=== PATIENT | female | born 2000 | race Caucasian/White ===

== ENCOUNTER → 2019-01-09 | Outpatient (REF) | payer OTHER | LOC: M LAB REF 16:32 | PROVIDERS: ATTEND Physician Assistant | DX: A09 Infectious gastroenteritis and colitis, unspecified (principal) ==

== ENCOUNTER → 2019-07-13 | Outpatient (REF) | payer OTHER | LOC: M LAB REF 10:03 | PROVIDERS: ATTEND Physician Assistant | DX: R30.0 Dysuria (principal) ==

== ENCOUNTER 2020-01-15 11:25 | Outpatient (CLI) | payer OTHER ==
[~2020-01-15] VITALS: Ht 154.9 cm; Wt 85.8 kg
[2020-01-15 11:58] VITALS: BP 126/66
[2020-01-15] MEDS ORDERED: LR 1,000 ML IV SCH (13:00)
[2020-01-15] MEDS ORDERED: LR 1,000 ML IV ONE (13:00)
--- NOTE | 2020-01-15 13:10 | IPNPDOC ---
Text Note Date of Service The patient was seen on 01/15/20. NOTE patient is a 19 yo G1 @ 24+5wks gestation with mono/di twins gestation presents to L&D for newly found shortened cervix at 1.1cm on growth US today. patient denies ctx/lof/vb. vitals: normal nad abd: gravid, soft, nt fhtA: 145/mod amairani/no accel/no decel fhtB: 150/mod amairani/no accel/no decel toco: ctx q1-2mins (patient not feeling contractions) speculum exam: cervix visually closed, vaginal with white discharge, no lesion wet prep: pending a/p patient is a 19 yo G1 mono/di twins @ 24+5wks with shortened cervix. reviewed of prior US on Fe showed cervix length at 4.3cm. Today's cervix length at 1.1cm concerning for early labor since toco is showing contractions. Discussed with Dr. Lee at [facility] and he agrees to accept patient for higher level of care for potential neonates. plan discussed with patient and spouse and they are in agreement with plan for transfer to [facility]. DO Demetrice VS,Ulices, I+O VS, Ulices, I+O Vital Signs Date Time Temp Pulse Resp B/P (MAP) Pulse Ox O2 Delivery O2 Flow Rate FiO2 01/15/20 11:58 99.1 107 18 126/66 (86) YAA MORALES DO Jan 15, 2020 13:10
[2020-01-15 13:15] VITALS: BP 122/75
[2020-01-15] MEDS ORDERED: ASPI81CH33 PO (13:59)
[2020-01-15] MEDS ORDERED: PREN29TA4 PO (13:59)
[2020-01-15] MEDS ORDERED: FOLI1TAB11 PO (13:59)
[2020-01-15] MEDS ORDERED: FLUCONAZOLE 50MG TABLET PO ONE (15:00)
== END 2020-01-15 13:35 | disposition other institution (70) ==
LOC: M LDO 11:25
PROVIDERS: ATTEND Advanced Practice Midwife
DX: O26.872 Cervical shortening, second trimester (principal); Z3A.24 24 weeks gestation of pregnancy; O30.032 Twin pregnancy, monochorionic/diamniotic, second trimester; O26.892 Other specified pregnancy related conditions, second trimester; N89.8 Other specified noninflammatory disorders of vagina; O60.02 Preterm labor without delivery, second trimester
CPT/HCPCS: 87210; 96360; G0378; G0463

== ENCOUNTER → 2020-02-18 | Outpatient (CLI) | payer OTHER ==
[~2020-02-18] MED LIST: ASPI81CH33 PO; FOLI1TAB11 PO; PREN29TA4 PO
--- NOTE | 2020-02-19 16:33 | REP ---
Clinical: Twin gestation. Growth evaluation Findings: Examination demonstrates advanced diamniotic monochorionic twin gestation. Cervix is not measurable on transvaginal examination. Concordant growth is noted. Gestational age by LMP at 29 weeks 4 days with estimated date of delivery 05/01/2020 . TWIN A: Twin A identified in cephalic presentation along the maternal right side. Placenta is noted posterior/left lateral and grade I without evidence for placenta previa or abruption. motion is appreciated. Amniotic fluid volume is normal and the deepest pocket measures 2.3 cm. FHR equals 152 beats per minute. Gestational age by current measurements: 30 weeks 3 days . Estimated weight 1557 grams ( 59th percentile). Biophysical profile score: 8/8 Umbilical cord SD ratio: 2.72 ------- TWIN B: Twin B identified in cephalic presentation along the maternal left side. Placenta is noted posterior/left lateral and grade I without evidence for placenta previa or abruption. motion is appreciated. Amniotic fluid volume is normal and the deepest pocket measures 3.2 cm. FHR equals 167 beats per minute. Gestational age by current measurements: 30 weeks 3 days . Estimated weight 1581 grams ( 62nd percentile). Biophysical profile score: 8/8 Umbilical cord SD ratio: 2.89 Impression: 1. Advanced diamniotic monochorionic twin gestation demonstrating appropriate concordant growth. No gross abnormalities are identified. 2. Cervix is thinned and not measurable by transvaginal examination. 3. Biophysical profile score 8/8 both twins. Electronically Signed by Calvin Thurston MD 02/19/2020 04:25 P
== END ==
LOC: M RAD 10:03
PROVIDERS: ATTEND Obstetrics & Gynecology
DX: O30.033 Twin pregnancy, monochorionic/diamniotic, third trimester (principal); Z3A.28 28 weeks gestation of pregnancy

== ENCOUNTER 2020-02-29 03:51 | Outpatient (CLI) | payer OTHER ==
[~2020-02-29] VITALS: Ht 154.9 cm; Wt 93.0 kg
[2020-02-29 04:24] VITALS: BP 126/78
[2020-02-29] MEDS ORDERED: TERBUTALINE SULFATE 1 MG/ML VIAL (J3105) SC ONE ×2 (05:15→07:45)
[2020-02-29] MEDS ORDERED: MOM 30ML SUSPENSION UDC PO PRN (05:15)
[2020-02-29] MEDS ORDERED: ONDANSETRON 4 MG ORAL DISINTEGRATING TAB PO PRN (05:15)
[2020-02-29] MEDS ORDERED: LR 1,000 ML IV ONE ×3 (05:15→06:15)
[2020-02-29] MEDS ORDERED: CALCIUM CARBONATE 500 MG CHEW U/D PO PRN (05:15)
[2020-02-29] MEDS ORDERED: diphenhydrAMINE 25MG CAP PO PRN (05:15)
[2020-02-29] MEDS: BETAMETHASONE SOLUSPAN 6MG/ML 5ML VIAL (J0702 PER 3MG) IM SCH (05:22)
--- NOTE | 2020-02-29 05:33 | HPEPDOC ---
Obstetrical History & Physical General Date of Admission History of Present Illness Patient is a 19yo at 31.5wks by redating 5wk US. Contractions since 10pm. Was transferred to [facility] 01/15/2020 for PTL and short cervix. Received beta. GBS positive. No LOF. Good movement. Chief Complaint: Contractions, pre-term Information Provided By: Patient Care Care: Good Care Dating Final EDC: May 01, 2020 Final EDC by: 2nd trimester (US) Antepartum Course Height (inches): 61 Pre- weight (lbs.): 155 Admission Weight (lbs.): 195 Change in Weight (lbs.): 40 Past Medical History Past Obstetrical History : Past Obstetrical History: [facility] History: No pertinent history Past Medical History Medical History none Surgical History: Denies/None Family History Significant Family History: No pertinent family hx Social History Marital Status: Family situation: Spouse/partner home Psychosocial History: No pertinent psych hx * Smoker: non-smoker Alcohol: Denies Drugs: denies Abuse Violence Screening Have you been hit/kicked/slapp: No Have you been sexually assault: No Imunizations Tdap status: current Influenza Status: current Allergies Coded Allergies: ampicillin (Verified Allergy, Intermediate, rash & hives, 02/29/20) codeine (Verified Allergy, Intermediate, rash & hives, 02/29/20) Medications Scheduled Aspirin (Aspirin) 81 Mg Tab.chew, 81 MG PO DAILY for pain Folic Acid (Folic Acid) 1 Mg Tablet, 1 TAB PO DAILY Prenat 115/Iron Fum/Folic/Dss ( 19 Tablet) 1 Each Tablet, 1 TAB PO DAILY Physical Examination Physical Examination GENERAL: Alert and oriented times three. BREAST: . ABDOMEN: Gravid and non-tender to touch. SVE: deferred EXTREMITIES: No edema. Vital Signs/I&O Vital Signs Date Time Temp Pulse Resp B/P (MAP) Pulse Ox O2 Delivery O2 Flow Rate FiO2 02/29/20 04:24 98.4 99 126/78 (94) Laboratory Data Urine Culture: Contaminated Pertinent Laboratoy Data Blood Type: A+ RBC Antibody Screen: Negative HIV: Negative Hepatitis B: Negative Rapid Plasma Reagin: Nonreactive Rubella: Immune Varicella: Immune Chlamydia/Gonorrhea: Negative Group B Streptococcus: Positive Cystic Fibrosis: Negative Glucose Tolerance Test: 119 Assessment Heart Rate (FHR): 140 Variability: Moderate Accelerations: Positive Decelerations: None Tocometer Contractions: Yes Frequency: every 2-5 min. Multi-drug resistant Organism: No history of MDRO Assessment/Plan Assessment Patient is a 19yo at 31.5wks by redating 5wk US. Patient presenting with labor with twins. Plan Place on 23hr observation. Diet: Regular. Group B Streptococcus (GBS) Positive and will require antibiotics if labor continues. Labs and intravenous (IV) per unit protocol. Lactated Ringers (LR): Bolus 1000 mL, then at 125 mL/hr. US for cervical length, EFW, CHAVO, and positioning. Terbutaline and reevaluate for possible Magnesium sulfate vs nifedipine. Start beta series. Bushra Ordaz MD Feb 29, 2020 05:33
[2020-02-29 07:06] VITALS: BP 127/64
--- NOTE | 2020-02-29 07:11 | REPVR ---
PROCEDURE INFORMATION: Exam: US , Limited Exam date and time: 02/29/2020 6:40 AM Age: 19 years old Clinical indication: Lmp or gestational age (in weeks): 31; Other: Contractions; ; Additional info: Cervical length, tania, efw, position TECHNIQUE: Imaging protocol: Real-time ultrasound of the maternal uterus with image documentation. Exam focused on the clinical indication. COMPARISON: US OBS SINGEL GEST 02/18/2020 10:11 AM FINDINGS: GESTATION: There is a twin with 2 live fetuses. Fetus A Gestation: The stomach appears unremarkable. Assessment of the anatomy was somewhat limited due to patient positioning and crowding. The lateral ventricles normal in size. The posterior fossa was not well visualized. The midline structures of the brain were not well visualized. The bladder appears unremarkable. Heart rate: A heartbeat was detected with a rate of 154 bpm. Presentation: The lie is vertex, to the maternal right. Placenta: There is a single placenta, right lateral in position. There is no retroplacental hemorrhage. Amniotic fluid: The deepest pocket of the amniotic fluid is 6.2 cm. BIOMETRY: Estimated gestational age: The average ultrasound age is 32 weeks 2 days. Estimated weight: The estimated weight is 1781 g. Biparietal diameter: The biparietal diameter is 8.26 cm, corresponding to a 33 week 2 day gestation. Head circumference: The head circumference is 29.97 cm, corresponding to a 33 week 2 day gestation. Abdominal circumference: The abdominal circumference measures 27.38 cm, corresponding to a 31 week 4 day gestation. Femur length: The femur length is 5.86 cm, corresponding to a 30 week 5 day gestation. Fetus B Gestation: The midline structures of the brain, the lateral ventricles, the spine, the kidneys, the stomach, the bladder, the diaphragm were identified and appear normal. Heart rate: A heartbeat was detected with a rate of 164 bpm. Presentation: The lie is vertex, to the maternal left. Placenta: There is a single placenta, right lateral in position. There is no retroplacental hemorrhage. Amniotic fluid: The deepest pocket of the amniotic fluid is 5.0 cm. BIOMETRY: Estimated gestational age: The average ultrasound age is 31 weeks 3 days. Estimated weight: The estimated weight is 1705 g. Biparietal diameter: The biparietal diameter is 7.71 cm, corresponding to a 31 week 0 day gestation. Head circumference: The head circumference is 29.91 cm, corresponding to a 33 week 1 day gestation. Abdominal circumference: The abdominal circumference measures 26.5 cm cm, corresponding to a 30 week 5 day gestation. Femur length: The femur length is 6.02 cm, corresponding to a 31 week 3 day gestation. MATERNAL: Cervix: The internal cervical os appears to be closed. The cervix could not be fully visualized and a cervical length could not be accurately measured. IMPRESSION: 1. Live twin . 2. Estimated age by average sonographic measurements for fetus A is 31 weeks 6 days and for fetus B is 31 weeks 3 days, demonstrating appropriate interval growth compared to the prior exam. Electronically signed by: Sofía Burnham On 02/29/2020 07:11:05 AM
--- NOTE | 2020-02-29 07:37 | IPNPDOC ---
Text Note Date of Service The patient was seen on 02/29/20. NOTE Received "wet read" on US of CL could not be determined but inner os closed. position vtx/vtx. EFW 1708 and 1781. Adequate CHAVO. Current both Category 1 strip. Ctx q7min. She is feeling a lot less of the contractions and discomfort. Patient received 1dose of terb and IVF 1000mL bolus. I will give another dose of Terb as it has been affective, but patient at very high risk. Continue to monitor. VS,Fishbone, I+O VS, Fishbone, I+O Vital Signs Date Time Temp Pulse Resp B/P (MAP) Pulse Ox O2 Delivery O2 Flow Rate FiO2 02/29/20 04:24 98.4 99 126/78 (94) Bushra Ordaz MD Feb 29, 2020 07:37
[2020-02-29 11:46] VITALS: BP 118/70
[2020-02-29] MEDS ORDERED: ACETAMINOPHEN 500 MG TAB PO ONE (12:15)
[2020-02-29 18:30] VITALS: BP 114/62
[2020-02-29 20:54] VITALS: BP 114/56
[2020-03-01 00:37] VITALS: BP 104/58
[2020-03-01] MEDS: BETAMETHASONE SOLUSPAN 6MG/ML 5ML VIAL (J0702 PER 3MG) IM SCH (05:15)
[2020-03-01 05:21] VITALS: BP 126/58
[2020-03-01] MEDS ORDERED: CALC200T15 PO (10:10)
--- NOTE | 2020-03-01 16:03 | DSES ---
DATE OF ADMISSION: 02/29/2020 DATE OF DISCHARGE: 03/01/2020 This lady is a 19-year-old 1, para 0 at 31 weeks and five days, came in on 02/29/2020 with contractions since 10:00 p.m. on 02/29/2020. She was originally transferred to [facility] on 01/15/2020 because of labor with a short cervix. She received beta to make her complete and she was group B Streptococcus (GBS) positive. She was then discharged from [facility] to followup with [facility] ([facility]). Risk factors is she has mono/di twins. She has a shortened cervix. She is on ASA. She has a very friable cervix which causes spotting and she originally started with a shortened cervix of 1.1 cm. LABORATORY DATA: Her blood work is A+, HIV negative, hepatitis negative, RPR negative, rubella immune. Varicella immune. Pap was deferred to . Urine was negative. Gonorrhea and chlamydia are negative. One-hour glucose was 119. On admission, she was given IV fluids in a bolus. She was delay of group B Streptococcus (GBS) prophylaxis unless in actual labor. She was given terbutaline in order to stop contractions and she was given another series of betamethasone because the last one was six weeks ago. Over the course of the next 24 hours, she settled down. There was no vaginal bleeding. She had an ultrasound which indicated they were vertex, vertex, estimated weight 1708 and 1781 grams. Amniotic fluid index (CHAVO) was adequate, category 1 strips, and she just had contractions intermittently, sporadically, not painful and not feeling them. This morning, she was given her second dose of beta. We reviewed her ultrasound which focused on the cervix which showed that the external os was closed, but they were not able to visualize the total cervix length, and there was an estimation of funneling. Prior to discharge, we reevaluated her cervix digitally. There was basically no change in the cervix. She was counseled regarding kick chart, bleeding, contractions. She has an appointment in less than 24 hours at [facility] ([facility]). On discharge, her blood pressure is 126/58, respirations are 18, pulse is 98 and temperature is 98.0. She again has a category 1 strip times two. She is otherwise normocephalic, atraumatic. Neck: Full range of motion. Pupils equal and reactive to light. Distal pulses are symmetric. No evidence of deep vein thrombosis (DVT), pulmonary embolism (PE) or superficial phlebitis. Chest is clear bilaterally to bases. No wheezes or rhonchi. No costovertebral angle (CVA) tenderness. Abdomen is soft. Four quadrant bowel sounds are noted. hearts are present on the monitor. She has no loss of fluid or bleeding. She has no nausea, vomiting, diarrhea or constipation. No urgency. No frequency. No rashes, lesions, pruritus or arthralgia. She is neurologically complete. The patient expressed anxiety to go home as she has been here for almost 48 hours with no advancement in dilatation or contractions. The patient expressed understanding. All questions were answered, a 30-minute discussion, and the patient was discharged to followup in the office in less than 24 hours.
== END 2020-03-01 09:56 | disposition home or self-care (01) ==
LOC: M LDO 03:51 → EEVIPCON 03:51 → M LDO 03-01 09:56
PROVIDERS: ATTEND Obstetrics & Gynecology
DX: O60.03 Preterm labor without delivery, third trimester (principal); O30.033 Twin pregnancy, monochorionic/diamniotic, third trimester; O26.873 Cervical shortening, third trimester; Z88.1 Allergy status to other antibiotic agents; Z88.5 Allergy status to narcotic agent; Z3A.31 31 weeks gestation of pregnancy
CPT/HCPCS: 59025; 76816; 76817; 76820; 96372; G0378; G0463; J0702; J3105

== ENCOUNTER 2020-03-04 03:57 | Inpatient (IN) | payer OTHER ==
[2020-03-04] VITALS (40 sets, daily range): BP systolic 94–136; BP diastolic 52–92
[~2020-03-04] VITALS: Ht 154.9 cm; Wt 94.9 kg
[~2020-03-04 03:57] MED LIST changes: +CALC200T15 PO
[2020-03-04] MEDS ORDERED: TERBUTALINE SULFATE 1 MG/ML VIAL (J3105) SC SCH (04:45)
[2020-03-04] MEDS ORDERED: LR 1,000 ML IV ONE (04:45)
[2020-03-04] MEDS ORDERED: INDOMETHACIN 50 MG SUPPOSITORY (INDOCIN) PR ONE (04:45)
[2020-03-04 05:19] LABS: HEMATOCRIT 33.2 % (36.0-47.0); MEAN CORPUSCULAR HEMOGLOBIN 29.9 pg (27.0-33.0); MEAN CORPUSCULAR HGB CONC 33.1 g/dl (32.0-36.5); MEAN CORPUSCULAR VOLUME 90.2 fl (80.0-96.0); PLATELET COUNT, AUTOMATED 182 10^3/uL (150-450); RED BLOOD COUNT 3.68 10^6/uL (4.00-5.40)
[2020-03-04] MEDS ORDERED: LACTATED RINGER'S 1000 ML IV ONE (05:45)
[2020-03-04] MEDS: LR 1,000 ML IV SCH ×2 (06:29→18:31)
[2020-03-04] MEDS ORDERED: FENTANYL 2MCG/ML ROPIVACAINE 0.2% IN 0.9% NACL 100ML IVBAG As Ordered ONE ×2 (07:10→17:36)
[2020-03-04] MEDS: VANCOMYCIN HCL 1,000 MG, VIAL MATE ADAPTER 1 EACH in D5W 250 ML IV SCH ×2 (08:42→20:30)
[2020-03-04] MEDS ORDERED: * PENDING VANCOMYCIN ENTRY XX SCH (09:00)
[2020-03-04] MEDS ORDERED: MAG Sulf (L&D) 4 GM/100 ML 4 GM in IV 1 EA IV ONE (09:15)
[2020-03-04] MEDS ORDERED: CALCIUM GLUCONATE 1,000 MG in D5W MINI-BAG PLUS 100 ML IV PRN (09:15)
[2020-03-04] MEDS: MAG Sulf (OBGYN) 20GM/500ML 20,000 MG in IV 1 EA IV SCH ×2 (10:05→20:09)
--- NOTE | 2020-03-04 11:30 | IPNPDOC ---
Text Note Date of Service The patient was seen on 03/04/20. NOTE Intrapartum Note, Acceptance of Care Naya is a 19yo with mono-di twin gestation at 31w5d by 6wk u/s who was admitted around 0400 this morning for pre-term labor with cervix 6cm dilated and actively alexus. She was given indomethacin and terbutaline by the admitting physician. Since that time her ctx have spaced greatly. Patient received epidural and is comfortable. Membranes are intact. Notably, patient was evaluated this past weekend on 02/28 for PTL and received a second course of betamethasone. Ultrasound showed internal cervical os was closed, though cervical length could not be performed due to visualization- she was discharged home when she had no cervical change. PMhx/PNC significant for: starting BMI 29, shortened cervix in 2nd trimester that she was taking vaginal progesterone for. Admitted to [facility] at 24wk 01/14- 01/17 for shortened cervix where she received course of betamethasone and found to be GBS pos. Allergy to amoxicillin. 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 Fetus A Gestation: The stomach appears unremarkable. Assessment of the anatomy was somewhat limited due to patient positioning and crowding. The lateral ventricles normal in size. The posterior fossa was not well visualized. The midline structures of the brain were not well visualized. The bladder appears unremarkable. Heart rate: A heartbeat was detected with a rate of 154 bpm. Presentation: The lie is vertex, to the maternal right. Placenta: There is a single placenta, right lateral in position. There is no retroplacental hemorrhage. Amniotic fluid: The deepest pocket of the amniotic fluid is 6.2 cm. BIOMETRY: Estimated gestational age: The average ultrasound age is 32 weeks 2 days. Estimated weight: The estimated weight is 1781 g. Biparietal diameter: The biparietal diameter is 8.26 cm, corresponding to a 33 week 2 day gestation. Head circumference: The head circumference is 29.97 cm, corresponding to a 33 week 2 day gestation. Abdominal circumference: The abdominal circumference measures 27.38 cm, corresponding to a 31 week 4 day gestation. Femur length: The femur length is 5.86 cm, corresponding to a 30 week 5 day gestation. Fetus B Gestation: The midline structures of the brain, the lateral ventricles, the spine, the kidneys, the stomach, the bladder, the diaphragm were identified and appear normal. Heart rate: A heartbeat was detected with a rate of 164 bpm. Presentation: The lie is vertex, to the maternal left. Placenta: There is a single placenta, right lateral in position. There is no retroplacental hemorrhage. Amniotic fluid: The deepest pocket of the amniotic fluid is 5.0 cm. BIOMETRY: Estimated gestational age: The average ultrasound age is 31 weeks 3 days. Estimated weight: The estimated weight is 1705 g. Biparietal diameter: The biparietal diameter is 7.71 cm, corresponding to a 31 week 0 day gestation. Head circumference: The head circumference is 29.91 cm, corresponding to a 33 week 1 day gestation. Abdominal circumference: The abdominal circumference measures 26.5 cm cm, corresponding to a 30 week 5 day gestation. Femur length: The femur length is 6.02 cm, corresponding to a 31 week 3 day gestation. MATERNAL: Cervix: The internal cervical os appears to be closed. The cervix could not be fully visualized and a cervical length could not be accurately measured. IMPRESSION: 1. Live twin . 2. Estimated age by average sonographic measurements for fetus A is 31 weeks 6 days and for fetus B is 31 weeks 3 days, demonstrating appropriate interval growth compared to the prior exam. Assessment: Naya is a 19yo with mono-di twin gestation at 31w5d by 6wk u/s in pre-term labor. She was given indomethacin/terbutaline by admitting physician which stopped/spaced her ctx and she has had no further cervical change from this morning, still 6/100/-1 over 5 hours. Reassuring status x2. Vitals wnl. Plan: -Continue to monitor closely -IV MgSO4 4/2g initiated for neuro protection. Neuro checks. Monitoring of UOP. -1g vancomycin q12hr initiated for GBS positive status (seen in PNC documentatio n and GBS urine result was faxed which confirms, she has allergy to amoxicillin- hives/rash- and the urine cx showed clinda/erythro resistant -NO further betamethasone since patient received a course in January and again this past weekend -Dr. Porras was consulted for NICU perspective and has spoken with patient regarding expectations -Given that fetuses are cephalic/cephalic, plan is for vaginal delivery. However, delivery will occur in the OR and set up done to perform if there is any indication -NPO -Safe to proceed Dr. Dolly Augustin MD VS,Ulices, I+O VS, Ulices, I+O Laboratory Tests 03/04/20 05:11 Vital Signs Date Time Temp Pulse Resp B/P (MAP) Pulse Ox O2 Delivery O2 Flow Rate FiO2 03/04/20 10:57 93 18 99/56 (70) 03/04/20 10:25 Room Air 03/04/20 10:07 99.0 94 Dolly Augustin MD Mar 04, 2020 11:30
[2020-03-04] MEDS: FENTANYL/ROPIVACAINE/NACL BAG 100 ML EPIDURAL SCH ×2 (12:28→17:40)
[2020-03-04] MEDS ORDERED: ONDANSETRON 4MG/2ML VIAL IV PRN (12:30)
[2020-03-04] MEDS ORDERED: LACTATED RINGER'S 1000 ML IV PRN (12:30)
[2020-03-04] MEDS ORDERED: ePHEDrine SULFATE 25 MG/5 ML(5MG/ML) SYRINGE IV PRN (12:30)
[2020-03-04] MEDS ORDERED: EPIDURAL/PCA KEYS XX PRN (12:30)
[2020-03-04] MEDS ORDERED: EPIDURAL COMMENT XX SCH (12:30)
[2020-03-04] MEDS ORDERED: diphenhydrAMINE 50MG/ML VIAL (J1200) IV PRN (12:30)
[2020-03-04] MEDS ORDERED: NALOXONE INJ 0.4MG/1ML VIAL (J2310 PER 1MG) IV PRN (12:30)
[2020-03-04] MEDS ORDERED: REFRIGERATOR IV KEYS XX PRN (12:30)
--- NOTE | 2020-03-04 16:18 | HPE ---
DATE OF ADMISSION: 03/04/2020 This lady is a 19-year-old 1, para 0 at 31 and 6 weeks of gestation today, who came in with contractions every 1-5 minutes apart, and it has been ongoing for the last 3-4 hours. She denies any loss of fluid or vaginal bleeding. She was originally transferred to [place] on 01/15/2020 because of a labor with a shortened cervix. She received prophylactic antibiotics because GBS status was unknown. Reviewing her chart, we cannot find any evidence of where she was GBS positive. Her urine was negative, and her most recent GBS, which was 48 hours ago, was negative. She is neurologic complete with magnesium sulfate. She is steroid complete for lung maturity. She was originally seen in [place], as mentioned, on 01/15/2020. Discharged to the care of [facility]. She has risk factors of monochorionic/diamniotic twins. She has a cervix which is not measurable, and some funneling has occurred. She is presently on ASA, and originally she had some spotting because of a very friable cervix. Her lab values are she is A positive, HIV negative, hepatitis negative, RPR negative, rubella immune, Varicella immune. Pap was deferred to . Urine was negative. Gonorrhea and chlamydia are negative. GBS status as of 40 hours ago was negative, and her 1-hour glucose was 119. She originally was admitted on 02/28/2020. She was given IV fluids in a bolus. She had delayed GBS prophylaxis. She was given terbutaline. Her contractions stopped. She was given another series of betamethasone because the first one was over 6 weeks ago, and she was monitored here for 24 hours, re-evaluated, and found to have no contractions. Her ultrasound, on February 28 revealed a twin with two live fetuses. Fetus A was vertex, heart rate was 154 per minute. The A was on the maternal right. Placenta with single, right lateral position. No retroplacental hemorrhage, and the deepest pocket was 6.2 cm. B was vertex presenting. Anatomy was normal. Heart rate was 164, vertex, and on the maternal left. Amniotic fluid deepest pocket was 5.0. Estimated weight was 1705 grams and 1781 grams. Cervix appeared to be closed, but there was funneling, and on examination, as mentioned, before the patient left, there was just a dimple, and there was no evidence to suggest ongoing dilatation; however, she started in January, and she has got into this funneling position. She comes in today with alexus 1-5 minutes, mild intensity. No vaginal bleeding or loss or show. Blood pressure is 136/92, respirations are 18, pulse is 99.0. On pelvic examination, she is 5-6 cm, 100% effaced, vertex presenting, -3 station, bulging membranes, which we left intact. No show and no discharge. The rest examination is unremarkable. She is normocephalic, atraumatic. Neck: Full range of motion. Pupils equal and reactive to light. Distal pulses are symmetric. No evidence of deep vein thrombosis (DVT), pulmonary embolism (PE), or superficial phlebitis. Chest is clear bilaterally to bases. No wheezes or rhonchi. No costovertebral angle (CVA) tenderness. Abdomen is soft. Intermittent contractions are noted. Category 1 strip for both babies. PAST MEDICAL AND SURGICAL HISTORY: Unremarkable. FAMILY HISTORY: Noncontributory. She does not smoke, drink, or abuse drugs. No domestic violence. Good support. She is to a soldier. She has no urgency or frequency, incontinence, nausea, vomiting, diarrhea, or constipation. No diabetic issues. No heat or cold insensitivities. We discussed the plan of care with the patient and the fact that she has now progressed into 5-6 with bulging membranes with intermittent contractions. Our plan of management is to notify neonatology. We will attempt to give her one episode of terbutaline and Indomethacin 50 mg suppository and see if can slow down the process. We discussed the management of delivery. Initially she was booked for a section back in her first few visits for sometime in April; however, since progression to 5-6 cm, the patient was considering vaginal delivery, and she had spoken with one of our other providers, who felt comfortable delivering her vaginally. At the present time, I do not expect imminent delivery; however, I think she is a good candidate for vaginal delivery of the twins. We will notify because of possible transfer once they are delivered and notify her instrument adjuster presently. In summary, have a 31 and 6-week gestation, monochorionic/diamniotic twins with uterine irritability which has gotten her to 5-6 cm, 100% effaced, and the plan will be to continue as discussed. We had an approximately 1-hour discussion with the patient.
[2020-03-04] MEDS ORDERED: ACETAMINOPHEN 500 MG TAB PO ONE (16:30)
[2020-03-05] VITALS (26 sets, daily range): BP systolic 95–119; BP diastolic 54–74
[2020-03-05] MEDS: LR 1,000 ML IV SCH ×2 (02:09→09:28)
[2020-03-05] MEDS: MAG Sulf (OBGYN) 20GM/500ML 20,000 MG in IV 1 EA IV SCH (04:58)
[2020-03-05] MEDS: FENTANYL/ROPIVACAINE/NACL BAG 100 ML EPIDURAL SCH (06:03)
--- NOTE | 2020-03-05 07:06 | IPNPDOC ---
Text Note Date of Service The patient was seen on 03/05/20. NOTE Daily Note Naya is a 19yo with mono-di twin gestation at 31w6d by 6wk u/s who was admitted around 0400 on 03/04 for pre-term labor with cervix 6cm dilated and actively alexus. She was given indomethacin and terbutaline by the admitting physician. Since that time her ctx spaced greatly, and she stopped progressing in labor. She received epidural yesterday and has been comfortable, this morning describes just some slight cramping. Membranes are intact. Notably, patient was evaluated this past weekend on 02/28 for PTL and received a second course of betamethasone. Ultrasound showed internal cervical os was closed, though cervical length could not be performed due to visualization- she was discharged home when she had no cervical change. PMhx/PNC significant for: starting BMI 29, shortened cervix in 2nd trimester that she was taking vaginal progesterone for. Admitted to [facility] at 24wk 01/14- 01/17 for shortened cervix where she received course of betamethasone and found to be GBS pos. Allergy to amoxicillin. 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 Fetus A Gestation: The stomach appears unremarkable. Assessment of the anatomy was somewhat limited due to patient positioning and crowding. The lateral ventricles normal in size. The posterior fossa was not well visualized. The midline structures of the brain were not well visualized. The bladder appears unremarkable. Heart rate: A heartbeat was detected with a rate of 154 bpm. Presentation: The lie is vertex, to the maternal right. Placenta: There is a single placenta, right lateral in position. There is no retroplacental hemorrhage. Amniotic fluid: The deepest pocket of the amniotic fluid is 6.2 cm. BIOMETRY: Estimated gestational age: The average ultrasound age is 32 weeks 2 days. Estimated weight: The estimated weight is 1781 g. Biparietal diameter: The biparietal diameter is 8.26 cm, corresponding to a 33 week 2 day gestation. Head circumference: The head circumference is 29.97 cm, corresponding to a 33 week 2 day gestation. Abdominal circumference: The abdominal circumference measures 27.38 cm, corresponding to a 31 week 4 day gestation. Femur length: The femur length is 5.86 cm, corresponding to a 30 week 5 day gestation. Fetus B Gestation: The midline structures of the brain, the lateral ventricles, the spine, the kidneys, the stomach, the bladder, the diaphragm were identified and appear normal. Heart rate: A heartbeat was detected with a rate of 164 bpm. Presentation: The lie is vertex, to the maternal left. Placenta: There is a single placenta, right lateral in position. There is no retroplacental hemorrhage. Amniotic fluid: The deepest pocket of the amniotic fluid is 5.0 cm. BIOMETRY: Estimated gestational age: The average ultrasound age is 31 weeks 3 days. Estimated weight: The estimated weight is 1705 g. Biparietal diameter: The biparietal diameter is 7.71 cm, corresponding to a 31 week 0 day gestation. Head circumference: The head circumference is 29.91 cm, corresponding to a 33 week 1 day gestation. Abdominal circumference: The abdominal circumference measures 26.5 cm cm, corresponding to a 30 week 5 day gestation. Femur length: The femur length is 6.02 cm, corresponding to a 31 week 3 day gestation. MATERNAL: Cervix: The internal cervical os appears to be closed. The cervix could not be fully visualized and a cervical length could not be accurately measured. IMPRESSION: 1. Live twin . 2. Estimated age by average sonographic measurements for fetus A is 31 weeks 6 days and for fetus B is 31 weeks 3 days, demonstrating appropriate interval growth compared to the prior exam. Assessment: Naya is a 19yo with mono-di twin gestation at 31w6d by 6wk u/s admitted for pre-term labor, given uterotonics on admission with cessation of progression and she remains 6/100/-1 for >24hr. Reassuring status x2. Vitals wnl. No s/sx of Mg toxicity. Plan: -Continue to monitor closely on L&D -Continue IV MgSO4 4/2g initiated for neuro protection. Neuro checks. Monitoring of UOP. Consider d/c of MgSO4 after 24hr, approx 11am today. -1g vancomycin q12hr initiated for GBS positive status (seen in PNC documentation and GBS urine result was faxed which confirms, she has allergy to amoxicillin- hives/rash- and the urine cx showed clinda/erythro resistant. Held subsequent doses after the first since no further progress in labor, would re- start if she begins to progress in labor -NO further betamethasone since patient received a course in January and again this past weekend -Dr. Porras was consulted for NICU perspective and has spoken with patient regarding expectations -Given that fetuses are cephalic/cephalic, plan is for vaginal delivery. section for any indication. -Changed diet from clear liquids to regular, but will need to continue to reassess today -Safe to proceed Dr. Dolly Augustin MD VS,Ulices, I+O VS, Ulices, I+O Vital Signs Date Time Temp Pulse Resp B/P (MAP) Pulse Ox O2 Delivery O2 Flow Rate FiO2 03/05/20 05:55 100 108/65 (79) 03/05/20 04:56 98.7 03/04/20 18:25 18 03/04/20 10:25 Room Air 03/04/20 10:07 94 I&O- Last 24 Hours up to 6 AM 03/05/20 06:00 Intake Total 4516.2 ml Output Total 3370 ml Balance 1146.2 ml Dolly Augustin MD Mar 05, 2020 07:06
[2020-03-05] MEDS: VANCOMYCIN HCL 1,000 MG, VIAL MATE ADAPTER 1 EACH in D5W 250 ML IV SCH (08:30)
--- NOTE | 2020-03-05 11:40 | IPN ---
DATE: 03/05/2020 This is an urgent dictation. The patient is being transferred to Dr. Urbina at [place], the labor and delivery unit. I reviewed the case with Dr. Urbina. This lady is a 19-year-old, 1, para 0, at 31 and 6 weeks of gestation who came in with contractions 48 hours ago and was found to be 5-6 cm with bulging membranes, vertex, vertex. She has monochorionic, diamniotic (mono, di) twins. She has no loss of fluid show or bleeding. She originally was seen in [place] 01/15/2020 because of a shortened cervix and labor. She received prophylactic antibiotics because of unknown group B streptococcus (GBS) status. She was neuro complete, and she was steroid complete. She had come in to [facility] on the weekend, was here for 48 hours, basically was a fingertip with no change in her cervix. She was given indomethacin suppository and terbutaline, and the uterine contractions stopped. She had a biophysical profile with normal amniotic fluid index (CHAVO) and 8/8. Again, vertex, vertex. She came in on Monday evening, 03/03/2020, at 0400 hours, alexus. She was found to be 5-6 cm with 80% effaced and bulging membranes. She was again given Endocet suppository, hydrated. She received prophylactic antibiotics for GBS and again mag sulfate for neuro completeness. Because she was alexus, she had an epidural in place and a Henning catheter. Presently, she is just using it intermittently, but on examination at 10:58 a.m. on 03/05/2020, basically no change in her cervix. No show. No discharge and still 5-6 with a bulging membrane and vertex presenting -3 station. She has category 1 strip throughout uterine irritability We discussed a mode of transport, optimizing the babies' outcome, and originally 24 hours ago, Dr. Pal expressed understanding and was willing to accept the patient. This morning again, speaking with Dr. Urbina because nothing has changed, there was a reasonable chance that nothing would happen; and so he has accepted transfer, and our plan of management is to maintain the IV, discontinue the epidural catheter, continue the Henning catheter, transfer by ambulance to [place] labor and delivery. Dr. Bal will be in attendance in the ambulance, and a intensive care unit nurse or Dr. Porras will attend in the ambulance, as well. Basically, there has been no change in the last 48 hours, and there is a low chance of labor and delivery; and, therefore, we discussed with the patient the option, and she is understanding that optimizing the babies' survival would be to be in the intensive care unit (NICU). We are presently making arrangements for ambulance transfer. Presently, her blood pressure is 117/58, respirations are 18, pulse is 97, and she is afebrile at 97.6. Her chemistry indicates that her hemoglobin is 11.0 hematocrit is 33.2, platelets are 182. White count is 17.0. At the present time, she is stable. Will reevaluate the patient immediately prior to transport. THANH
[2020-03-05] MEDS ORDERED: ACETAMINOPHEN 500 MG TAB PO ONE (12:15)
== END 2020-03-05 12:43 | DRG 833 ==
LOC: M LDO 03:57 → M LDI 04:59
PROVIDERS: ADMIT Obstetrics & Gynecology; ATTEND Obstetrics & Gynecology
DX: O60.03 Preterm labor without delivery, third trimester (principal); Z3A.31 31 weeks gestation of pregnancy; O30.033 Twin pregnancy, monochorionic/diamniotic, third trimester